=== PATIENT | female | born 2000 | race Caucasian/White ===

== ENCOUNTER 2023-10-08 18:54 | Emergency (ER) | payer OTHER ==
[~2023-10-08] VITALS: Ht 157.5 cm; Wt 108.0 kg
--- OUTSIDE RECORDS SUMMARY | 2023-10-08 21:07 | XMS ---
PreManage Notification: RACHID BEST Security Drug Safety Data Management Specialist Events No recent Security Events currently on file CRITERIA MET - [facility] - 2 Visits in 30 Days CARE PROVIDERS -, [place]- Dentist: Solar System Installer [facility] PHONE: [phone] -Kavitha- Dentist: Solar System Installer [facility] PHONE: [phone] [facility]: [facility] ([facility]) PHONE: [phone] ANGIE SOL Physician Metalizer: Medical Current PHONE: Unknown Anderson has no Care Guidelines for this patient. [place] VISIT COUNT (12 MO.) 1 JANET Koch [facility] TOTAL 2 NOTE: Visits indicate total known visits. ED/UCC VISIT TRACKING (12 MO.) 10/08/2023 18:55 JANET Hicks [place] TYPE: Emergency COMPLAINT: - RT LEG PAIN/NO INJ 09/11/2023 10:36 [facility] [place] TYPE: Emergency DIAGNOSES: - Pain in right lower leg - severe leg and back pain INPATIENT VISIT TRACKING (12 MO.) No inpatient visits to display in this time frame [id number]
[2023-10-08 22:07] LABS: HEMOGLOBIN 12.8 g/dL (12.0-18.0)
[2023-10-08 22:10] LABS: BASOPHILS 0.9 % (0-2); EOSINOPHILS 2.3 % (0-6); HEMATOCRIT 38.1 % (35.0-50.0); LYMPHOCYTES 31.8 % (24-44); MCH 28.6 (27-36); MCHC 33.6 g/dl (30-36); MCV 85.2 fl (81-99); MONOCYTES 6.5 % (0-12); NEUTROPHILS 58.5 % (39-80); PLATELET COUNT 411 K/uL (140-440); RBC 4.47 M/ul (4.3-5.7); RDW 13.5 (10.5-15.0)
[2023-10-08 22:16] LABS: BILIRUBIN, URINE NEGATIVE (negative); BLOOD/HGB, URINE NEGATIVE (Negative); KETONE, URINE NEGATIVE (Negative); LEUK ESTERASE, URINE NEGATIVE (negative); NITRITE, URINE NEGATIVE (negative)
[2023-10-08 22:31] LABS: AMPHETAMINES, URINE NEGATIVE (NEGATIVE); BARBITURATES, URINE NEGATIVE (NEGATIVE); BENZODIAZEPINE, URINE NEGATIVE (NEGATIVE); BUPRENORPHINE, URINE NEGATIVE (NEGATIVE); CANNABINOID, URINE NEGATIVE (NEGATIVE); COCAINE, URINE NEGATIVE (NEGATIVE); ECSTASY, URINE NEGATIVE (NEGATIVE); FENTANYL, URINE NEGATIVE (NEGATIVE); METHADONE, URINE NEGATIVE (NEGATIVE); OPIATES, URINE NEGATIVE (NEGATIVE); OXYCODONE, URINE NEGATIVE (NEGATIVE); PHENCYCLIDINE, URINE NEGATIVE (NEGATIVE)
[2023-10-08 22:32] LABS: ALBUMIN 3.7 g/dL (3.4-5.0); ALBUMIN/GLOBULIN RATIO 0.84 (1.1-2.4); ANION GAP 13.9 (7-21); BILIRUBIN, TOTAL 0.2 ng/dL (0.2-1.0); BUN/CREATININE RATIO 17.91 (6.0-28.6); CALCIUM 9.6 mg/dL (8.5-10.1); CREATININE, SERUM 0.67 mg/dL (0.55-1.02); POTASSIUM 3.9 mmol/L (3.5-5.1); PROTEIN, TOTAL 8.1 g/dL (6.4-8.2)
[2023-10-08 22:35] LABS: ACETAMINOPHEN 0 ug/mL (10-30); ALCOHOL, MEDICAL <3 ng/dL (<3); SALICYLATE 1.2 mg/dL (2.8-20.0); TSH, 3RD GENERATION 3.423 uIU/mL (0.358-3.740)
[2023-10-08 23:12] LABS: ERYTHROCYTE SEDIMENTATION RATE 18
[2023-10-09] MEDS ORDERED: NAPROSYN500 MG PO (01:29)
[2023-10-09 02:07] VITALS: BP 121/69
== END 2023-10-09 02:07 | disposition home or self-care (01) ==
LOC: ED 18:54
PROVIDERS: Internal Medicine
DX: S86.111A Strain of other muscle(s) and tendon(s) of posterior muscle group at lower leg level, right leg, initial encounter (principal); R45.851 Suicidal ideations; E66.01 Morbid (severe) obesity due to excess calories; Z68.41 Body mass index [BMI] 40.0-44.9, adult; X58.XXXA Exposure to other specified factors, initial encounter
CPT/HCPCS: 36415; 80053; 80307; 81003; 84443; 84703; 85025; 85379; 85651; 86140; 96374; 99285-25; G0480; J1885